=== PATIENT | female | born 1975 | race Caucasian/White ===

== ENCOUNTER → 2016-05-31 | Outpatient (CLI) | payer BC ==
[~2016-05-31] MED LIST: CIPR-255 PO; NORGTAB39 PO
== END | disposition home or self-care (01) ==
LOC: C.PAPS 11:33
PROVIDERS: ATTEND Obstetrics & Gynecology
DX: Z01.419 Encounter for gynecological examination (general) (routine) without abnormal findings (principal)

== ENCOUNTER → 2016-08-05 | Outpatient (CLI) | payer BC ==
--- NOTE | 2016-08-05 08:45 | DIAGNOSTIC IMAGING REPORT ---
Pain. Nausea. (LIVER) ABDOMEN LIMITED CLINICAL HISTORY: R10.811 Abdominal right upper quadrant [id number] TECHNIQUE: Ultrasound COMPARISON STUDY: 04/10/2015 FINDINGS: Patient is status post cholecystectomy. Liver is uniform throughout. Common bile duct 5 mm. Pancreas and right kidney are unremarkable IMPRESSION: Negative study status post cholecystectomy Electronically signed by: Karson Jain M.D. 08/05/2016 8:44 AM Dictated Date/Time: 08/05/2016 8:36 AM
== END | disposition home or self-care (01) ==
LOC: C.ULTR 08:12
PROVIDERS: ATTEND Nurse Practitioner Family
DX: R10.811 Right upper quadrant abdominal tenderness (principal); Z90.49 Acquired absence of other specified parts of digestive tract

== ENCOUNTER → 2016-10-21 | Outpatient (CLI) | payer BC ==
--- NOTE | 2016-10-21 15:24 | MAMMOGRAPHY REPORT ---
BILATERAL FIRST EVER DIGITAL SCREENING MAMMOGRAM TOMOSYNTHESIS WITH CAD: 10/21/2016 CLINICAL HISTORY: Routine screening. Baseline exam. TECHNIQUE: Breast tomosynthesis in addition to standard 2D mammography was performed. Current study was also evaluated with a Computer Aided Detection (CAD) system. COMPARISON: No prior exams were available for comparison. BREAST COMPOSITION: There are scattered areas of fibroglandular density in both breasts. FINDINGS: There is a focal 11 mm asymmetry seen within the left medial breast at approximately 9:00 , for which spot compression tomosynthesis views and possible breast ultrasound are recommended for further evaluation. The remainder of both breasts are negative, without suspicious masses, calcifications, or areas of a rchitectural distortion noted. IMPRESSION: ACR BI-RADS CATEGORY 0: INCOMPLETE EVALUATION: NEED ADDITIONAL IMAGING EVALUATION Left breast focal asymmetry, for which additional imaging evaluation is recommended. The patient wi ll be called to schedule an appointment. Approximately 10% of breast cancers are not detected with mammography. A negative mammographic repor t should not delay biopsy if a clinically suggestive mass is present. Dominique Hagan M.D. ah/:10/21/2016 15:03:58 Conveyor Weigher Operator: Madeline BURTON(R)(M), [facility] letter sent: Addl Imaging 0 BI-RADS Code: ACR BI-RADS Category 0: Incomplete Evaluation: Need Additional Imaging Evaluation
== END ==
LOC: C.MAMM 13:52
PROVIDERS: ATTEND Family Medicine
DX: Z12.31 Encounter for screening mammogram for malignant neoplasm of breast (principal)

== ENCOUNTER → 2017-01-26 | Outpatient (CLI) | payer BC ==
--- NOTE | 2017-01-26 19:05 | DIAGNOSTIC IMAGING REPORT ---
RIGHT FOOT MIN 3 VIEWS ROUTINE CLINICAL HISTORY: 41 years-old Female presenting with M79.674 Great toe pain, right Right. TECHNIQUE: Frontal, oblique, and lateral views of the right foot were obtained. COMPARISON: None. FINDINGS: Minimal degenerative change suggested at the first metatarsophalangeal joint without evidence of joint space loss. Accessory navicular bone noted. Os peroneum also noted. No acute fracture or malalignment. No significant soft tissue swelling. No other degenerative change. IMPRESSION: Minimal degenerative change at the first metatarsophalangeal joint. No acute osseous injury. Electronically signed by: Goyo Mora M.D. 01/26/2017 7:04 PM Dictated Date/Time: 01/26/2017 7:03 PM
== END | disposition home or self-care (01) ==
LOC: C.RAD 18:32
PROVIDERS: ATTEND Nurse Practitioner Family
DX: M79.674 Pain in right toe(s) (principal)